=== PATIENT | male | born 1990 | race Caucasian/White ===

== ENCOUNTER 2017-02-06 18:32 | Emergency (ER) | payer SELFPAY ==
--- NOTE | 2017-02-06 19:12 | EDM.PDOC ---
ED HPI GENERAL MEDICAL PROBLEM - General Chief Complaint: Genitourinary Problem Stated Complaint: STD CHECK Time Seen by Provider: 02/06/17 19:08 Source of Information: Reports: Patient History Limitations: Reports: No limitations - History of Present Illness INITIAL COMMENTS - FREE TEXT/NARRATIVE: History of present illness: [26-year-old male comes in desiring testing for chlamydia. Patient indicates that some months ago he had unprotected sex with a partner and he thinks his current partner is showing some symptoms and he would like to be tested before he informs her of his infidelity.] Review of systems: As per history of present illness and below otherwise all systems reviewed and negative. Past medical history: As per history of present illness and as reviewed below otherwise noncontributory. Surgical history: As per history of present illness and as reviewed below otherwise noncontributory. Social history: No reported history of drug or alcohol abuse. Family history: As per history of present illness and as reviewed below otherwise noncontributory. Physical exam: HEENT: Atraumatic, normocephalic, pupils reactive, negative for conjunctival pallor or scleral icterus, mucous membranes moist, throat clear, neck supple, nontender, trachea midline. Lungs: Clear to auscultation, breath sounds equal bilaterally, chest nontender. Heart: S1S2, regular, negative for clicks, rubs, or JVD. Abdomen: Soft, nondistended, nontender. Negative for masses or hepatosplenomegaly. Negative for costovertebral tenderness. Pelvis: Stable nontender. Genitourinary: Deferred. Rectal: Deferred. Extremities: Atraumatic, negative for cords or calf pain. Neurovascular unremarkable. Neuro: Awake, alert, oriented. Cranial nerves II through XII unremarkable. Cerebellum unremarkable. Motor and sensory unremarkable throughout. Exam nonfocal. Diagnostics: [GC chlamydia urine] Therapeutics: [] Impression: [STD testing] Plan: [] Definitive disposition and diagnosis as appropriate pending reevaluation and review of above. - Related Data Allergies Allergy/AdvReac Type Severity Reaction Status Date / Time No Known Allergies Allergy Verified 02/06/17 18:45 Home Meds: Home Meds Amoxicillin [Amoxil] 500 mg PO Q8H 02/06/17 [History] Past Medical History - Past Health History Medical/Surgical History: Denies Medical/Surgical History Social & Family History - Tobacco Use Smoking Status *Q: Current Every Day Smoker Years of Tobacco use: 10 Packs/Tins Daily: 0.5 Used Tobacco, but Quit: No Second Hand Smoke Exposure: No - Caffeine Use Caffeine Use: Reports: None - Alcohol Use Days Per Week of Alcohol Use: 3 Number of Drinks Per Day: 5 Total Drinks Per Week: 15 - Recreational Drug Use Recreational Drug Use: No ED ROS GENERAL - Review of Systems Review Of Systems: See Below (History of present illness) ED EXAM, GENERAL - Physical Exam Exam: See Below (See history of present illness) Course - Vital Signs Last Recorded V/S: Last Vital Signs Temp 37.1 C 02/06/17 18:42 Pulse 123 H 02/06/17 18:42 Resp 16 02/06/17 18:42 BP 174/109 H 02/06/17 18:42 Pulse Ox 99 02/06/17 18:42 - Orders/Labs/Meds Orders: Active Orders 24 hr Category Date Time Status CHLAMYDIA TRACHOMATIS/GC AMPLF Stat Lab 02/06/17 18:52 Received Departure - Departure Time of Disposition: 19:11 Disposition: Home, Self-Care 01 Condition: good Clinical Impression: STD exposure Instructions: Sexually Transmitted Disease, [id number] Forms: ED Department Discharge Additional Instructions: The following information is given to patients seen in the emergency department who are being discharged to home. This information is to outline your options for follow-up care. We provide all patients seen in our emergency department with a follow-up referral. The need for follow-up, as well as the timing and circumstances, are variable depending upon the specifics of your emergency department visit. If you don't have a primary care physician on staff, we will provide you with a referral. We always advise you to contact your personal physician following an emergency department visit to inform them of the circumstance of the visit and for follow-up with them and/or the need for any referrals to a consulting specialist. The emergency department will also refer you to a specialist when appropriate. This referral assures that you have the opportunity for follow-up care with a specialist. All of these measure are taken in an effort to provide you with optimal care, which includes your follow-up. Under all circumstances we always encourage you to contact your private physician who remains a resource for coordinating your care. When calling for follow-up care, please make the office aware that this follow-up is from your recent emergency room visit. If for any reason you are refused follow-up, please contact the [facility] Emergency Department at and asked to speak to the emergency department charge nurse. You've been tested per your request secondary to concern of exposure You will be notified with results by lab call if you do not hear from us as the results will be medical records Followup with the PCP in one to 2 days Return to ED as needed as
[2017-02-06 20:15] VITALS: BP 180/97
== END 2017-02-06 19:19 | disposition home or self-care (01) ==
LOC: MW.ED 18:32
DX: Z20.2 Contact with and (suspected) exposure to infections with a predominantly sexual mode of transmission (principal); F17.210 Nicotine dependence, cigarettes, uncomplicated
CPT/HCPCS: 87491; 87591; 99281; 99283

== ENCOUNTER 2019-03-24 01:53 | Observation (INO) | payer BC ==
[2019-03-24] MEDS ORDERED: HYDROmorphone 1 MG/ML Syringe IVPUSH ONE ×2 (02:05→03:03)
[2019-03-24] MEDS ORDERED: Sodium Chloride 0.9% 2.5 ML Syringe FLUSH PRN (02:05)
[2019-03-24] MEDS ORDERED: Sodium Chloride 0.9% 1,000 ML IV ONE (02:05)
[2019-03-24] MEDS ORDERED: Diphtheria,Pertussis(Acell),Tetanus Vaccine 0.5 ML Syringe IM ONE (02:05)
[2019-03-24] MEDS ORDERED: Ondansetron 4 MG/2 ML SDV IVPUSH ONE (02:05)
[2019-03-24] MEDS ORDERED: Sodium Chloride 0.9% 10 ML Syringe FLUSH PRN (02:05)
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
[2019-03-24] MEDS ORDERED: Sodium Chloride 0.9% 1,000 ML IV SCH (03:15)
[2019-03-24] MEDS: Bacitracin Oint 28.35 GM Tube TOP SCH ×3 (03:36→15:06)
[2019-03-24] MEDS ORDERED: LORazepam 1 MG Tab PO PRN (04:43)
[2019-03-24] MEDS ORDERED: HYDROmorphone 1 MG/ML Syringe IVPUSH PRN (04:43)
[2019-03-24] MEDS: Sodium Chloride 0.9% 1,000 ML IV SCH ×2 (05:54→11:34)
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
[2019-03-24] MEDS ORDERED: Ibuprofen 600 MG Tab PO PRN (11:31)
[2019-03-24 15:38] VITALS: BP 128/71
== END 2019-03-24 03:45 | disposition home or self-care (01) ==
LOC: MW.ED 01:53 → MW.MS 03:08
PROVIDERS: ADMIT Internal Medicine; ATTEND Internal Medicine
DX: T23.202A Burn of second degree of left hand, unspecified site, initial encounter (principal); T23.201A Burn of second degree of right hand, unspecified site, initial encounter; T24.221A Burn of second degree of right knee, initial encounter; T22.012A Burn of unspecified degree of left forearm, initial encounter; T22.011A Burn of unspecified degree of right forearm, initial encounter; T31.0 Burns involving less than 10% of body surface; F17.210 Nicotine dependence, cigarettes, uncomplicated; W18.30XA Fall on same level, unspecified, initial encounter; X08.8XXA Exposure to other specified smoke, fire and flames, initial encounter
CPT/HCPCS: 90471; 90715; 96361; 96374; 96375; 96376; 97161; 99285; G0378; J1170; J2405; J7040; 99284

== ENCOUNTER 2019-03-27 16:43 | Observation (INO) | payer BC ==
[2019-03-27] MEDS ORDERED: Sodium Chloride 0.9% 2.5 ML Syringe FLUSH PRN (17:48)
[2019-03-27] MEDS ORDERED: Sodium Chloride 0.9% 10 ML SDV IV PRN (17:48)
[2019-03-27] MEDS ORDERED: diphenhydrAMINE 50 MG/ML SDV IVPUSH PRN (17:48)
[2019-03-27] MEDS ORDERED: Sodium Chloride 0.9% 10 ML Syringe FLUSH PRN (17:48)
[2019-03-27] MEDS ORDERED: Ondansetron 4 MG/2 ML SDV IVPUSH PRN (17:48)
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
[2019-03-27] MEDS: Sodium Chloride 0.9% 1,000 ML IV SCH (18:42)
[2019-03-27] MEDS: Piperacillin/Tazobactam 3.375 GM in Sodium Chloride 0.9% 50 ML IV SCH (18:43)
[2019-03-27] MEDS: Nicotine 14 MG/24 Hr Patch TRDERM SCH (18:44)
[2019-03-27 19:04] LABS: CHLORIDE,CL 102 mmol/L (98-107); SODIUM,NA 138 mmol/L (136-148)
[2019-03-27] MEDS: Multivitamin Tab PO SCH (21:13)
[2019-03-28] MEDS: Piperacillin/Tazobactam 3.375 GM in Sodium Chloride 0.9% 50 ML IV SCH ×5 (00:07→23:20)
[2019-03-28] MEDS: Acetaminophen/HYDROcodone 325-5 MG Tab PO PRN ×3 (00:12→22:21)
[2019-03-28] MEDS: HYDROmorphone 1 MG/ML Syringe IVPUSH PRN ×3 (02:27→20:09)
[2019-03-28] MEDS: Sodium Chloride 0.9% 1,000 ML IV SCH ×3 (05:30→19:08)
[2019-03-28 06:51] LABS: CHLORIDE,CL 104 mmol/L (98-107); SODIUM,NA 136 mmol/L (136-148)
[2019-03-28] MEDS: Nicotine 14 MG/24 Hr Patch TRDERM SCH (08:56)
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
--- NOTE | 2019-03-28 09:54 | PCM.PREANE ---
Preanesthetic Assessment - Anesthesia/Transfusion/Family Hx Anesthesia History: No Prior Anesthesia Family History of Anesthesia Reaction: No Transfusion History: No Prior Transfusion(s) - Review of Systems General: No Symptoms Pulmonary: No Symptoms Cardiovascular: No Symptoms Gastrointestinal: No Symptoms Neurological: No Symptoms Other: Reports: None - Physical Assessment NPO Status Date: 03/27/19 O2 Sat by Pulse Oximetry: 99 Respiratory Rate: 16 Vital Signs: Last Vital Signs Temp 97.9 F 03/28/19 07:58 Pulse 75 03/28/19 07:58 Resp 16 03/28/19 07:58 BP 136/79 03/28/19 07:58 Pulse Ox 99 03/28/19 07:58 Height: 5 ft 8 in Weight: 75.41 kg ASA Class: 2 Mental Status: Alert & Oriented x3 Dentition: Reports: Normal Dentition (implant in central maxillary incisor) ROM/Head Extension: Full Lungs: Clear to Auscultation, Normal Respiratory Effort Cardiovascular: Regular Rate, Regular Rhythm - Lab Values: Laboratory Last Values WBC 12.56 K/uL (4.0-11.0) H 03/28/19 06:25 RBC 4.87 M/uL (4.50-5.90) 03/28/19 06:25 Hgb 15.5 g/dL (13.0-17.0) 03/28/19 06:25 Hct 44.9 % (38.0-50.0) 03/28/19 06:25 MCV 92.2 fL (80.0-98.0) 03/28/19 06:25 MCH 31.8 pg (27.0-32.0) 03/28/19 06:25 MCHC 34.5 g/dL (31.0-37.0) 03/28/19 06:25 RDW Std Deviation 42.5 fl (28.0-62.0) 03/28/19 06:25 RDW Coeff of Pillo 13 % (11.0-15.0) 03/28/19 06:25 Plt Count 227 K/uL (150-400) 03/28/19 06:25 MPV 11.10 fL (7.40-12.00) 03/28/19 06:25 Neut % (Auto) 68.1 % (48.0-80.0) 03/28/19 06:25 Lymph % (Auto) 21.7 % (16.0-40.0) 03/28/19 06:25 [place] % (Auto) 8.5 % (0.0-15.0) 03/28/19 06:25 Eos % (Auto) 1.5 % (0.0-7.0) 03/28/19 06:25 Baso % (Auto) 0.2 % (0.0-1.5) 03/28/19 06:25 Neut # (Auto) 8.5 K/uL (1.4-5.7) H 03/28/19 06:25 Lymph # (Auto) 2.7 K/uL (0.6-2.4) H 03/28/19 06:25 [place] # (Auto) 1.1 K/uL (0.0-0.8) H 03/28/19 06:25 Eos # (Auto) 0.2 K/uL (0.0-0.7) 03/28/19 06:25 Baso # (Auto) 0.0 K/uL (0.0-0.1) 03/28/19 06:25 Nucleated RBC % 0.0 /100WBC 03/28/19 06:25 Nucleated RBCs # 0 K/uL 03/28/19 06:25 Lactate 1.4 mmol/L (0.20-2.00) 03/27/19 18:34 Sodium 136 mmol/L (136-148) 03/28/19 06:25 Potassium 4.1 mmol/L (3.5-5.1) 03/28/19 06:25 Chloride 104 mmol/L (98-107) 03/28/19 06:25 Carbon Dioxide 24.6 mmol/L (21.0-32.0) 03/28/19 06:25 BUN 10 mg/dL (7.0-18.0) 03/28/19 06:25 Creatinine 0.9 mg/dL (0.8-1.3) 03/28/19 06:25 Est Cr Clr Drug Dosing 117.17 mL/min 03/28/19 06:25 Estimated GFR (MDRD) > 60.0 ml/min 03/28/19 06:25 Glucose 100 mg/dL (74-106) 03/28/19 06:25 Calcium 8.4 mg/dL (8.5-10.1) L 03/28/19 06:25 - Allergies Allergies/Adverse Reactions: Allergies Allergy/AdvReac Type Severity Reaction Status Date / Time No Known Allergies Allergy Verified 03/27/19 17:36 - Anesthesia Plan Pre-Op Medication Ordered: None - Acknowledgements Anesthesia Type Planned: General Anesthesia Pt an Appropriate Candidate for the Planned Anesthesia: Yes Alternatives and Risks of Anesthesia Discussed w Pt/Guardian: Yes Pt/Guardian Understands and Agrees with Anesthesia Plan: Yes Additional Comments: anes prob list: smoker , bradshaw PLAN: ga/lma PreAnesthesia Questionnaire - Past Health History Medical/Surgical History: Denies Medical/Surgical History - SUBSTANCE USE Smoking Status *Q: Current Every Day Smoker - HOME MEDS Home Medications: Home Meds . [No Known Home Meds] 03/27/19 [History] - CURRENT (IN HOUSE) MEDS Current Meds: Current Medications Hydrocodone Bitart/Acetaminophen ([place] 325-5 Mg) 2 tab PO Q4H PRN PRN Reason: Pain (moderate 4-6) Diphenhydramine HCl (Benadryl) 50 mg IVPUSH Q4H PRN PRN Reason: Itching Hydromorphone HCl (Dilaudid) 0.5 mg IVPUSH Q1H PRN PRN Reason: Pain (severe 7-10) Last Admin: 03/28/19 09:03 Dose: 0.5 mg Sodium Chloride (Normal Saline) 1,000 mls @ 125 mls/hr IV ASDIRECTED [facility] Last Admin: 03/28/19 05:30 Dose: 125 mls/hr Piperacillin Sod/Tazobactam (Sod 3.375 gm/ Sodium Chloride) 50 mls @ 100 mls/ hr IV Q6H [facility] Last Admin: 03/28/19 05:31 Dose: 100 mls/hr Vancomycin HCl 1.25 gm/ Sodium (Chloride) 250 mls @ 166.667 mls/hr IV Q8H [facility] Last Admin: 03/28/19 08:56 Dose: 166.667 mls/hr Multivitamins/Minerals/Vitamin C (Tab-A-Dewey) 1 tab PO BEDTIME [facility] Last Admin: 03/27/19 21:13 Dose: 1 tab Nicotine (Habitrol) 14 mg TRDERM DAILY [facility] Last Admin: 03/28/19 08:56 Dose: Not Given Ondansetron HCl (Zofran) 4 mg IVPUSH Q6H PRN PRN Reason: Nausea/Vomiting Sodium Chloride (Saline Flush) 10 ml FLUSH ASDIRECTED PRN PRN Reason: Keep Vein Open Sodium Chloride (Saline Flush) 2.5 ml FLUSH ASDIRECTED PRN PRN Reason: Keep Vein Open Sodium Chloride (Normal Saline) 10 ml IV ASDIRECTED PRN PRN Reason: IV Use Vancomycin HCl (Pharmacy To Dose - Vancomycin) 1 dose .XX ASDIRECTED [facility] Discontinued Medications Vancomycin HCl 1 gm/Vancomycin HCl 250 mg/ Sodium Chloride 250 mls @ 166.667 mls/hr IV Q12H [facility] Last Admin: 03/27/19 20:19 Dose: Not Given Vancomycin HCl 1 gm/Vancomycin HCl 250 mg/ Sodium Chloride 250 mls @ 166.667 mls/hr IV Q12H [facility] Last Admin: 03/27/19 21:14 Dose: 166.667 mls/hr Vancomycin HCl 1 gm/Vancomycin HCl 250 mg/ Sodium Chloride 250 mls @ 166.667 mls/hr IV Q8H [facility]
[2019-03-28] MEDS ORDERED: Lidocaine 2% 5 ML SDV ONE (10:08)
[2019-03-28] MEDS ORDERED: fentaNYL 100 MCG/2 ML SDV ONE (10:08)
[2019-03-28] MEDS ORDERED: Propofol 200 MG/20 ML SDV ONE ×2 (10:08→11:05)
[2019-03-28] MEDS ORDERED: Midazolam 1 MG/ML 2 ML SDV ONE (10:08)
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
--- NOTE | 2019-03-28 12:11 | PCM.POSTAN ---
POST ANESTHESIA ASSESSMENT - MENTAL STATUS Mental Status: Alert, Oriented - RESPIRATORY Respiratory Status: Respiratory Rate WNL, Airway Patent, O2 Saturation Stable - CARDIOVASCULAR CV Status: Pulse Rate WNL, Blood Pressure Stable - GASTROINTESTINAL GI Status: No Symptoms - POST OP HYDRATION Hydration Status: Adequate & Stable
[2019-03-28] MEDS: Multivitamin Tab PO SCH (20:09)
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
[2019-03-29] MEDS: HYDROmorphone 1 MG/ML Syringe IVPUSH PRN (02:52)
[2019-03-29] MEDS: Sodium Chloride 0.9% 1,000 ML IV SCH (05:00)
[2019-03-29] MEDS: Acetaminophen/HYDROcodone 325-5 MG Tab PO PRN (05:58)
[2019-03-29] MEDS: Piperacillin/Tazobactam 3.375 GM in Sodium Chloride 0.9% 50 ML IV SCH (06:00)
[2019-03-29] MEDS ORDERED: Bisacodyl 5 MG Tab PO PRN (07:45)
[2019-03-29 07:56] VITALS: BP 138/75
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
[2019-03-29] MEDS: Nicotine 14 MG/24 Hr Patch TRDERM SCH (08:30)
== END 2019-03-29 09:15 ==
LOC: MW.MS 16:43
PROVIDERS: ADMIT Surgery; ATTEND Surgery
DX: T22.311A Burn of third degree of right forearm, initial encounter (principal); T23.351A Burn of third degree of right palm, initial encounter; T23.341A Burn of third degree of multiple right fingers (nail), including thumb, initial encounter; T22.212A Burn of second degree of left forearm, initial encounter; T23.252A Burn of second degree of left palm, initial encounter; T23.242A Burn of second degree of multiple left fingers (nail), including thumb, initial encounter; T23.292A Burn of second degree of multiple sites of left wrist and hand, initial encounter; T24.221A Burn of second degree of right knee, initial encounter; T31.0 Burns involving less than 10% of body surface; L03.90 Cellulitis, unspecified; F17.210 Nicotine dependence, cigarettes, uncomplicated; X03.0XXA Exposure to flames in controlled fire, not in building or structure, initial encounter
CPT/HCPCS: 16020; 36415; 80048; 80202; 83605; 85025; 85027; 87040; 87070; 96361; 96365; 96366; 96367; 96375; A9270; G0378; G0379; J1170; J2001; J2250; J2543; J2704; J3010; J3370; J7040; J7050